=== PATIENT | male | born 1935 | race Caucasian/White ===

== ENCOUNTER 2020-01-06 15:16 | Emergency (ER) | payer MEDICARE, OTHER ==
[2020-01-06] MEDS ORDERED: Doxycycline 100 MG Cap PO ONE ×2 (16:25→16:34)
[2020-01-06] MEDS ORDERED: Cephalexin 500 MG Cap PO ONE (16:26)
--- NOTE | 2020-01-06 16:34 | EDM.PDOC ---
ED HPI GENERAL MEDICAL PROBLEM - General Chief Complaint: Skin Complaint Stated Complaint: RASH OR SPOT ON RIGHT ARM PER PT Time Seen by Provider: 01/06/20 16:15 Source of Information: Reports: Patient History Limitations: Reports: No Limitations - History of Present Illness INITIAL COMMENTS - FREE TEXT/NARRATIVE: This 84 yo male patient reports to the ED with a rash to his right forearm with a red streak going up his arm. Duration: Day(s): (4), Constant, Getting Worse Location: Reports: Upper Extremity, Left Quality: Reports: Other Severity: Mild Improves with: Reports: None Worsens with: Reports: None Associated Symptoms: Reports: No Other Symptoms - Related Data Allergies Allergy/AdvReac Type Severity Reaction Status Date / Time No Known Allergies Allergy Verified 01/06/20 15:52 Home Meds: Home Meds Glucosam/Chond/Collagen/Hyalur [Glucosamine Chondroitin] 1 each PO DAILY 03/05/14 [History] Lutein 6 mg PO DAILY 03/05/14 [History] Multivitamin [Multi Vitamin Daily] 1 each PO DAILY 03/05/14 [History] [place]-3S/DHA/Epa/Fish Oil/D3 [Fish Qhh-Cicta-2-Vit D Softgel] 1 each PO ASDIRECTED 03/05/14 [History] Simvastatin [Zocor] 20 mg PO BEDTIME 03/05/14 [History] Ubidecarenone [Coenzyme Q10] 50 mg PO ASDIRECTED 03/05/14 [History] Past Medical History - Past Health History Medical/Surgical History: Denies Medical/Surgical History Dermatologic History: Reports: Other (See Below) Other Dermatologic History: Here with a tick bite Social & Family History - Tobacco Use Smoking Status *Q: Never Smoker Second Hand Smoke Exposure: No - Caffeine Use Caffeine Use: Reports: Coffee - Recreational Drug Use Recreational Drug Use: No ED ROS GENERAL - Review of Systems Review Of Systems: Comprehensive ROS is negative, except as noted in HPI. ED EXAM, SKIN/RASH Exam: See Below Exam Limited By: No Limitations General Appearance: Alert, WD/WN, No Apparent Distress Respiratory/Chest: No Respiratory Distress (Male) Exam: Deferred Rectal (Males) Exam: Deferred Psychiatric: Normal Affect, Normal Mood Skin: Warm, Dry, Intact Location, Skin: Upper Extremity, Left Characteristics: Other (Small round erythematous lesion to left forearm with streaking up to the AC) Lymphatic: No Adenopathy Course - Vital Signs Last Recorded V/S: Last Vital Signs Temp 36.7 C 01/06/20 15:46 Pulse 65 01/06/20 15:46 Resp 16 01/06/20 15:46 BP 135/69 01/06/20 15:46 Pulse Ox 98 01/06/20 15:46 - Orders/Labs/Meds Meds: Medications Discontinued Medications Generic Name Dose Route Start Last Admin Trade Name Joann PRN Reason Stop Dose Admin Cephalexin 500 mg 01/06/20 16:26 Keflex PO 01/06/20 16:27 ONETIME ONE Doxycycline Hyclate 200 mg 01/06/20 16:25 Vibramycin PO 01/06/20 16:26 ONETIME ONE Departure - Departure Time of Disposition: 16:37 Disposition: Home, Self-Care 01 Condition: Fair Clinical Impression: Wood tick bite, Cellulitis of left forearm - Discharge Information *PRESCRIPTION DRUG MONITORING PROGRAM REVIEWED*: Not Applicable *COPY OF PRESCRIPTION DRUG MONITORING REPORT IN PATIENT RAQUEL: Not Applicable Instructions: Tick Bite Information, Adult, Cellulitis, Adult, [id number] Care Plan Goals: The patient was advised of the examination results during the visit. The patient was given an oral dose of doxycycline and keflex while in the ED. The patient was discharged with a script for Keflex (500 mg) #30 to take 1 by mouth 3 times per day for 10 days. If the patient has any additional symptoms or concerns, the patient should either return to the emergency department or visit his primary care facility. Sepsis Event Note (ED) - Evaluation Sepsis Screening Result: No Definite Risk - Focused Exam Vital Signs: Vital Signs Temp Pulse Resp BP Pulse Ox 01/06/20 15:46 36.7 C 65 16 135/69 98
[2020-01-06] MEDS ORDERED: Doxycycline Monohydrate 100 MG Cap ONE (16:35)
== END 2020-01-06 16:44 | disposition home or self-care (01) ==
LOC: DL.ED 15:16
DX: S50.862A Insect bite (nonvenomous) of left forearm, initial encounter (principal); L03.114 Cellulitis of left upper limb; Z79.899 Other long term (current) drug therapy; W57.XXXA Bitten or stung by nonvenomous insect and other nonvenomous arthropods, initial encounter
CPT/HCPCS: 99282; A9270

== ENCOUNTER 2021-09-05 16:46 | Emergency (ER) | payer MEDICARE, OTHER ==
[2021-09-05] MEDS ORDERED: Sodium Chloride 0.9% 10 ML Syringe FLUSH PRN (16:51)
[2021-09-05] MEDS ORDERED: Sodium Chloride 0.9% 1,000 ML IV ONE ×2 (16:53→18:11)
[2021-09-05] MEDS ORDERED: Piperacillin/Tazobactam 4.5 GM in Sodium Chloride 0.9% 100 ML IV ONE (17:20)
[2021-09-05 17:31] LABS: ANION GAP 16.2 mEq/L (7-13)
== END 2021-09-05 19:10 ==
LOC: DL.ED 16:46
DX: A41.9 Sepsis, unspecified organism (principal); R65.20 Severe sepsis without septic shock; N17.9 Acute kidney failure, unspecified; C18.9 Malignant neoplasm of colon, unspecified; Z79.899 Other long term (current) drug therapy; Z20.822 Contact with and (suspected) exposure to COVID-19
CPT/HCPCS: 36415; 71045; 80053; 81001; 83605; 83735; 85025; 85610; 86140; 87040; 87077; 87186; 93005; 93010; 96365; 96368; 99284; 99285-25; J2543; J3370; J3490; J7030; J7050; U0002